=== PATIENT | male | born 1950 | race Caucasian/White ===

== ENCOUNTER 2023-07-05 11:32 | Outpatient (CLI) | payer MEDICARE, SELFPAY ==
--- NOTE | ~2023-07-05 | PE_ITS ---
EXAMINATION: PET_PETPSMAST_PT DATE: 07/05/2023 13:52 INDICATION: Malignant neoplasm of the prostate TECHNIQUE: 8.789 mCi of pipflufolastat F-18 (18-F-DCFPyL) was administered i.v. Low dose computed to mography (CT) images were acquired from the base of the brain to the base of the brain to the proxima l thighs for attenuation correction and anatomic localization. Positron emission tomography (PET) jazmin ges were acquired in the same distribution beginning 93 minutes after injection. Images including fus ed PET/CT images were reconstructed in axial, coronal, and sagittal planes. Automated exposure contro l technique was employed. The dose-length product was 744.08mGy-cm. COMPARISON: None FINDINGS: Head/neck: Typical pattern of symmetric physiologic increased activity in the lacrimal, parotid and submandibula r glands as well as along the mucosa of the nasal and oral cavities, the jayashree-, naso- and hypopharynx, the glottis and esophagus. There is also a typical pattern of symmetric tiny foci of mild likely phy siologic neural ganglia uptake at a few bilateral cervical neural foramina. No pathologically enlarge d cervical lymphadenopathy or suspicious foci of increased uptake in the visualized head or neck. Chest: Lungs are clear with no suspicious pulmonary nodules, pulmonary edema, pleural effusion or pneumonia. Heart size is normal. No pericardial effusion. Fusiform ascending thoracic aortic aneurysm measuring up to 4.6 cm in maximal diameter. Calcified right hilar lymph nodes consistent with old granulomatou s disease. There is an indeterminate 8.2 x 5.3 x 2.4 cm high attenuation lesion in the subcarinal rig ht paravertebral posterior mediastinum. The lesion demonstrates relatively homogeneous high attenuati on with mean Hounsfield units of approximately 450 intravenous without abnormal PSMA uptake on the PE T imaging. Small amount of more dense calcification at the periphery of the lesion. Differential woul d include calcified lymph node in the setting of old granulomatous disease or complex cystic lesion w ith internal milk of calcium. No pathologically enlarged or PSMA avid thoracic lymphadenopathy. Abdomen/pelvis/proximal thighs: Physiologic renal accumulation and excretion of activity in the kidneys, bladder and along portions o f ureters. Status post prostatectomy. Normal degree and slightly heterogenous pattern of increased up take throughout the liver and spleen without radiologic correlate or dominant PSMA avid lesion. There are however photopenic defects associated with a few low-attenuation hepatic cysts, the largest a ri ght hepatic lobe measuring 2.8 cm. There are few tiny splenic calcifications consistent with old gran ulomatous disease. The gallbladder, pancreas and bilateral adrenal glands are normal. Moderate uptake scattered throughout the bowels with typical duodenal and proximal jejunal predominance and without radiologic correlate, also likely physiologic. There is moderate colonic diverticulosis with a sigmoi d predominance. There is no adjacent inflammatory change to suggest diverticulitis. No other abnorm al foci of increased uptake or pathologically enlarged lymphadenopathy in the abdomen, pelvis or prox imal thighs. Musculoskeletal: T12 bone island without evident PSMA uptake. Much more subtle 8 mm PSMA avid sclerotic lesion at the left inferior pubic ramus with maximal SUV of 5.6 suspicious for metastatic disease. No other suspici ous lytic, blastic or PSMA avid bone lesions. IMPRESSION: 1. Status post prostatectomy with single focus of abnormal increased PSMA uptake corresponding to a s ubtle 8 mm sclerotic lesion at the left inferior pubic ramus suspicious for osseous metastatic diseas e. No other lesions suspicious for metastases identified. 2. Indeterminate 8.2 x 5.3 x 2.4 cm high attenuation lesion in the subcarinal right posterior mediast inum, potentially an enlarged calcified lymph node relat
== END 2023-07-05 11:33 | disposition home or self-care (01) ==
LOC: ANHIMG 11:37
PROVIDERS: Visit Provider Radiology Radiation Oncology
DX: C61 Malignant neoplasm of prostate (principal)
CPT/HCPCS: 78815; A9595